=== PATIENT | male | born 1975 | race Caucasian/White ===

== ENCOUNTER 2017-02-06 21:18 | Emergency (ER) | payer BC ==
[~2017-02-06] VITALS: Ht 177.8 cm; Wt 81.8 kg
[2017-02-06 21:21] VITALS: BP 188/98; PULSE 97; TEMP 99.2
[2017-02-06] MEDS ORDERED: NORVASC 5MG5 MG/TAB PO (21:29)
[2017-02-06] MEDS ORDERED: PHENERGAN 25 TA25 MG PO (21:30)
[2017-02-06] MEDS ORDERED: ASPIRIN 81M81 MG/TA2 PO (21:30)
[2017-02-06 22:11] LABS: INFLUENZA A NEGATIVE; INFLUENZA B NEGATIVE
[2017-02-06 22:27] LABS: BASO # 0.1 (0.0-0.2); BASO % 0.5 % (0.0-2.0); EOS % 0.3 % (0-4.0); GRAN # 10.4 (1.4-6.5); GRAN % 83.9 % (42.2-75.2); HEMATOCRIT 45.4 % (42.0-52.0); HEMOGLOBIN 15.6 g/dl (13.5-18.0); LYMPH # 0.8 (1.2-3.4); LYMPH % 6.7 % (20.0-51.0); MEAN CELL VOLUME 81 fl (80.0-100.0); MEAN CORPUSCULAR HEMOGLOBIN 28 pg (27.0-31.0); MEAN CORPUSCULAR HGB CONC 34 g/dl (33.0-37.0); MEAN PLATELET VOLUME 9.1 fl (7.4-10.4); MONO % 8.3 % (1.7-9.3); PLATELET COUNT 288 K/mm3 (130-400); RED BLOOD COUNT 5.63 M/mm3 (4.20-5.60); REDCELL DISTRIBUTION WIDTH-CV 13.1 % (11.5-14.5)
[2017-02-06 22:38] LABS: BILIRUBIN,TOTAL 1.3 mg/dL (0.0-1.0); CALCIUM 9.6 mg/dL (8.4-10.2); CREATININE, serum 1.16 mg/dL (0.66-1.25); POTASSIUM 3.9 mmol/L (3.4-5.0); TOTAL PROTEIN 8.4 gm/dL (6.4-8.2)
[2017-02-06] MEDS ORDERED: ZOFRAN 4MG T4 MG/TAB PO (23:28)
[2017-02-06] MEDS ORDERED: TESSALON P100 MG/CAP PO (23:28)
== END 2017-02-06 23:45 | disposition home or self-care (01) ==
LOC: COL.ER 21:18
PROVIDERS: Emergency Medicine
DX: J11.1 Influenza due to unidentified influenza virus with other respiratory manifestations (principal); R11.2 Nausea with vomiting, unspecified; R05 Cough; I10 Essential (primary) hypertension
CPT/HCPCS: J1885; J2405; J7030

== ENCOUNTER 2017-02-08 14:54 | Emergency (ER) | payer BC ==
[~2017-02-08] VITALS: Ht 177.8 cm; Wt 81.8 kg
[~2017-02-08 14:54] MED LIST: ASPIRIN 81M81 MG/TA2 PO; NORVASC 5MG5 MG/TAB PO; PHENERGAN 25 TA25 MG PO; TESSALON P100 MG/CAP PO; ZOFRAN 4MG T4 MG/TAB PO
[2017-02-08 15:03] VITALS: TEMP 99.4
[2017-02-08 15:51] LABS: BASO % 0.5 % (0.0-2.0); EOS # 0.1 (0.0-0.7); EOS % 0.6 % (0-4.0); GRAN # 7.1 (1.4-6.5); HEMATOCRIT 44.9 % (42.0-52.0); HEMOGLOBIN 15.1 g/dl (13.5-18.0); LYMPH # 0.8 (1.2-3.4); LYMPH % 8.9 % (20.0-51.0); MEAN CELL VOLUME 82 fl (80.0-100.0); MEAN CORPUSCULAR HEMOGLOBIN 28 pg (27.0-31.0); MEAN CORPUSCULAR HGB CONC 34 g/dl (33.0-37.0); MONO # 0.9 (0.1-0.6); MONO % 9.8 % (1.7-9.3); PLATELET COUNT 253 K/mm3 (130-400); RED BLOOD COUNT 5.49 M/mm3 (4.20-5.60)
[2017-02-08 16:06] LABS: ALBUMIN 4.7 gm/dL (3.5-5.0); BILIRUBIN,TOTAL 1.3 mg/dL (0.0-1.0); C-REACTIVE PROTEIN 7.8 mg/dL (0.0-0.9); CALCIUM 9.4 mg/dL (8.4-10.2); CREATININE, serum 1.27 mg/dL (0.66-1.25); POTASSIUM 4.2 mmol/L (3.4-5.0); TOTAL PROTEIN 8.3 gm/dL (6.4-8.2)
[2017-02-08] MEDS ORDERED: DOXYCYCLINE 10100 MG PO (17:09)
[2017-02-08] MEDS ORDERED: ZOFRAN 4MG T4 MG/TAB PO (17:09)
[2017-02-08] MEDS ORDERED: ROXICODONE 55 MG/TAB PO (17:09)
[2017-02-08 17:21] VITALS: BP 145/91; PULSE 84
== END 2017-02-08 17:53 | disposition home or self-care (01) ==
LOC: COL.ER 14:54
PROVIDERS: Emergency Medicine
DX: J18.9 Pneumonia, unspecified organism (principal); J98.11 Atelectasis; I10 Essential (primary) hypertension; Z79.82 Long term (current) use of aspirin
CPT/HCPCS: J7030